=== PATIENT | male | born 1940 | race Caucasian/White ===

== ENCOUNTER 2021-08-03 08:08 | Outpatient (CLI) | payer MEDICARE | END 2021-08-03 08:09 | disposition home or self-care (01) | LOC: CSHCT 08:08 | PROVIDERS: ATTEND Internal Medicine Gastroenterology | DX: K44.9 Diaphragmatic hernia without obstruction or gangrene (principal); K57.30 Diverticulosis of large intestine without perforation or abscess without bleeding; N20.0 Calculus of kidney; N28.1 Cyst of kidney, acquired | CPT/HCPCS: 74160 ==

== ENCOUNTER 2022-10-20 08:16 | Emergency (ER) | payer MEDICARE ==
[2022-10-20 09:10] LABS: #Basophils 0.1 10x3/uL (0.0-0.2); #Eosinphils 0.1 10x3/uL (0.0-0.5); #Monocytes 0.6 10x3/uL (0.0-1.1); #Neutrophils 6.3 10x3/uL (1.5-8.4); %Basophils 0.6 % (0.0-2.0); %Eosinophils 1.1 % (0.0-6.0); %Lymphocytes 15.8 % (18.0-47.0); %Monocytes 7.2 % (0.0-10.0); %Neutrophils 75.1 % (40.0-75.0); Hematocrit 38.8 % (38.8-50.0); Hemoglobin 12.9 g/dL (13.5-17.5); Mean Corpuscular HGB CONC 33.2 g/dL (32.0-36.0); Mean Corpuscular Hemoglobin 29.9 pg (27.0-33.0); Mean Corpuscular Volume 89.8 fl (81.2-95.1); Mean Platelet Volume 9.1 fl (7.4-10.4); Platelet Count 260 10x3/uL (150-450); RBC Distribution Width 13.8 % (11.5-14.5); Red Blood Cell (RBC) Count 4.32 10x6/uL (4.32-5.72); White Blood Cell (WBC) Count 8.3 10x3/uL (3.5-10.5)
[2022-10-20 09:19] LABS: INR-International Normal Ratio 1.1; PTT 28.4 sec (22.0-33.0); Prothrombin Time 11.3 sec (9.5-12.1)
[2022-10-20 09:22] LABS: ALT (SGPT) 9 U/L (8-55); AST (SGOT) 14 U/L (5-34); Albumin 4.2 g/dL (3.4-4.8); Alkaline Phosphatase 49 U/L (40-110); Anion Gap 16 mmol/L (10-20); BUN (Urea Nitrogen) 13 mg/dL (8.4-25.7); Bilirubin, Total 0.7 mg/dL (0.2-1.2); Calc. Creatinine Clearance 0 mL/min (70-130); Calcium 9.3 mg/dL (7.8-10.44); Carbon Dioxide 23 mmol/L (23-31); Chloride 103 mmol/L (98-107); Estimated GFR 71; Globulin 2.1 g/dL (2.4-3.5); Glucose 111 mg/dL (83-110); Potassium 4.5 mmol/L (3.5-5.1); Protein, Total 6.3 g/dL (5.8-8.1); Sodium 137 mmol/L (136-145)
[2022-10-20 09:25] LABS: CRP (Inflammatory) Less than 0.50 mg/dL (= or < 0.5); Magnesium 1.8 mg/dL (1.6-2.6)
[2022-10-20 09:26] LABS: Troponin I 0.011 ng/mL (< 0.028)
== END 2022-10-20 10:38 | disposition short-term general hospital (02) ==
LOC: CSHERS 08:16
DX: S06.5X0A Traumatic subdural hemorrhage without loss of consciousness, initial encounter (principal); I10 Essential (primary) hypertension; E78.5 Hyperlipidemia, unspecified; W18.30XA Fall on same level, unspecified, initial encounter; Z79.899 Other long term (current) drug therapy
CPT/HCPCS: 36415; 70450; 71045; 80053; 82140; 83605; 83735; 84484; 85025; 85610; 85730; 86140; 87040; 93005

== ENCOUNTER 2022-11-06 15:17 | Outpatient (CLI) | payer MEDICARE | END 2022-11-06 15:18 | disposition home or self-care (01) | LOC: CSHCT 15:17 | PROVIDERS: ATTEND Family Medicine | DX: I62.9 Nontraumatic intracranial hemorrhage, unspecified (principal); Z98.890 Other specified postprocedural states; I62.00 Nontraumatic subdural hemorrhage, unspecified | CPT/HCPCS: 70450 ==

== ENCOUNTER 2023-01-04 08:15 | Outpatient (CLI) | payer MEDICARE | END 2023-01-04 08:16 | disposition home or self-care (01) | LOC: CSHCT 08:15 | PROVIDERS: ATTEND Pediatrics Pediatric Gastroenterology | DX: S06.5X0D Traumatic subdural hemorrhage without loss of consciousness, subsequent encounter (principal); S01.90XD Unspecified open wound of unspecified part of head, subsequent encounter; Z98.890 Other specified postprocedural states | CPT/HCPCS: 70450 ==

== ENCOUNTER 2023-12-02 18:45 | Emergency (ER) | payer MEDICARE ==
[~2023-12-02 18:45] MED LIST: Iopamidol 370 76% 100 ML VIAL ONE
[2023-12-02 20:04] LABS: #Basophils 0.08 10x3/uL (0.0-0.2); #Eosinphils 0.39 10x3/uL (0.0-0.5); %Basophils 1.2 % (0.0-2.0); %Eosinophils 5.8 % (0.0-6.0); %Lymphocytes 35.8 % (18.0-47.0); %Neutrophils 47.9 % (40.0-75.0); Hematocrit 41.2 % (38.8-50.0); Hemoglobin 13.5 g/dL (13.5-17.5); Mean Corpuscular HGB CONC 32.8 g/dL (32.0-36.0); Mean Corpuscular Hemoglobin 30.3 pg (27.0-33.0); Mean Corpuscular Volume 92.4 fL (81.2-95.1); Mean Platelet Volume 9.2 fL (7.4-10.4); Platelet Count 230 10x3/uL (150-450); RBC Distribution Width 13.7 % (11.5-14.5); Red Blood Cell (RBC) Count 4.46 10x6/uL (4.32-5.72); White Blood Cell (WBC) Count 6.7 10x3/uL (3.5-10.5)
[2023-12-02 20:18] LABS: PTT 26.3 sec (22.0-33.0); Prothrombin Time 10.8 sec (9.5-12.1)
[2023-12-02 20:25] LABS: Troponin I Less than 0.010 ng/mL (< 0.028)
[2023-12-02 21:17] LABS: ALT (SGPT) 16 U/L (8-55); AST (SGOT) 15 U/L (5-34); Albumin 3.6 g/dL (3.4-4.8); Alkaline Phosphatase 48 U/L (40-110); Anion Gap 12 mmol/L (10-20); BUN (Urea Nitrogen) 23 mg/dL (8.4-25.7); Bilirubin, Total 0.3 mg/dL (0.2-1.2); Calc. Creatinine Clearance 0 mL/min (70-130); Carbon Dioxide 22 mmol/L (23-31); Chloride 107 mmol/L (98-107); Estimated GFR 62; Globulin 1.9 g/dL (2.4-3.5); Glucose 105 mg/dL (83-110); Potassium 4.4 mmol/L (3.5-5.1); Protein, Total 5.5 g/dL (5.8-8.1); Sodium 137 mmol/L (136-145)
[2023-12-02 22:11] LABS: Bilirubin Neg (Negative); Blood, Urine Negative (Negative); Clarity Clear (Clear); Glucose, Urine (Dipstick) Normal (Negative); Ketone, Urine Negative (Negative); Leukocyte Negative (Negative); Nitrite Negative (Negative); Protein, Urine (Dipstick) 15 mg/dl (Neg-Trace); Specific Gravity, Urine 1.015 (1.005-1.030); Urobilinogen Normal mg/dL (Less than 2); pH, Urine 6.5 (5.0-9.0)
[2023-12-02 22:37] LABS: Bacteria/HPF None Seen HPF (None Seen); CAUTI Indications for Culture Alt mental st,lethar; RBC/HPF 0-3 HPF (0-3); Squamous Epithelial None Seen HPF (0-3); WBC/HPF 0-3 HPF (0-3)
[2023-12-02 22:38] LABS: Urine Culture Reflex No No
== END 2023-12-02 23:55 | disposition home or self-care (01) ==
LOC: CSHERS 18:45
DX: R26.81 Unsteadiness on feet (principal); E78.5 Hyperlipidemia, unspecified; I10 Essential (primary) hypertension; Z79.899 Other long term (current) drug therapy
CPT/HCPCS: 0042T; 70450; 71045; 80053; 81001; 82550; 83605; 84484; 85025; 85610; 85730; 93005; 36415; Q9967

== ENCOUNTER 2023-12-13 08:46 | Outpatient (CLI) | payer MEDICARE | END 2023-12-13 08:47 | disposition home or self-care (01) | LOC: CSHULT 08:46 | PROVIDERS: ATTEND Family Medicine | DX: R10.9 Unspecified abdominal pain (principal); N28.9 Disorder of kidney and ureter, unspecified | CPT/HCPCS: 76700 ==